=== PATIENT | male | born 1960 | race Caucasian/White ===

== ENCOUNTER 2016-03-22 17:45 | Emergency (ER) | payer OTHER ==
[~2016-03-22] VITALS: Ht 172.7 cm; Wt 65.9 kg
[~2016-03-22 17:45] MED LIST: ALBUTEROL SULF8.5 GM IH; AMOXICILLIN500 M1 PO; Aspirin E.C. PO; BISAC-EVAC10 MG PR; BISACODYL5 MG PO; CAMPRAL333 MG PO; CHLORDIAZEPOXID25 MG PO; DOCUSATE SODIU100 MG PO; ENDOCET 5-3251 EACH PO; Folvite PO; KETOROLAC TROME10 MG PO; MAG-AL PLUS SUS30 ML PO; METOPROLOL SUCC25 MG PO; MILK OF MAGNESI10 ML PO; MORPHINE SULFAT15 M1; NEURONTIN300 MG PO; NOHOMEMEDS; PANTOPRAZOLE SO40 MG PO; PEPCID20 MG PO; PROTONIX40 MG PO; QUETIAPINE FUM400 MG PO; SENNA8.6 MG PO; SEROQUEL XR150 MG PO; SEROQUEL400 MG PO; THERAGRAN1 TABLET PO; THIAMINE HCL100 MG PO; THIAMINE,VITAM100 MG PO; TYLENOL EXTRA500 MG PO; TYLENOL REGULA325 MG PO; VICODIN,LORT1 TABLET PO; VITAMIN B-1100 MG PO; ZYVOX600 MG PO; oxyCODONE PO
[2016-03-22 18:22] LABS: HEMATOCRIT 40.8 % (38.0-50.0); MCH 31.4 PG (29.0-34.0); MCHC 33.8 G/DL (30.0-36.0); MCV 92.7 FL (86-99); MEAN PLAT.VOLUME 10.7 uM^3 (9.0-12.4); PLATELET COUNT 182 K/uL (156-360); RBC DIS.WIDTH-CV 14.5 % (11.8-14.6); RBC DIS.WIDTH-SD 47.6 % (39-53); WHITE BLOOD COUNT 5.3 K/uL (4.1-10.2)
[2016-03-22 18:34] LABS: CHLORIDE 111 mEq/L (99-109); POTASSIUM 3.8 mEq/L (3.7-5.4); SODIUM 147 mEq/L (136-147)
[2016-03-22 18:36] LABS: GLUCOSE 90 mg/dL (70-99)
[2016-03-22 18:38] LABS: ANION GAP 11 MEQ/L (2-14)
[2016-03-22 18:39] LABS: SERUM ETHYL ALCOHOL 262 mg/dL
[2016-03-22 18:40] LABS: GFR ESTIMATE (CALCULATED) > 59 mL/min/
[2016-03-22 18:41] LABS: UREA NITROGEN (BUN) 5 mg/dL (9-23)
[2016-03-23 10:12] VITALS: BP 101/74
== END 2016-03-23 10:14 | disposition home or self-care (01) ==
LOC: EME 17:45
PROVIDERS: Emergency Medicine
DX: F33.8 Other recurrent depressive disorders (principal); F10.129 Alcohol abuse with intoxication, unspecified; Y90.8 Blood alcohol level of 240 mg/100 ml or more; R45.851 Suicidal ideations; R45.850 Homicidal ideations; J45.909 Unspecified asthma, uncomplicated; I10 Essential (primary) hypertension; Z95.1 Presence of aortocoronary bypass graft; F17.200 Nicotine dependence, unspecified, uncomplicated
CPT/HCPCS: 80048; 85027; 90837; 99281; 99283; G0480; J1630; J2060

== ENCOUNTER 2016-05-29 08:19 | Emergency (ER) | payer OTHER ==
[~2016-05-29] VITALS: Ht 177.8 cm; Wt 68.9 kg
[2016-05-29 08:57] LABS: BASOPHIL COUNT 0.1 K/uL (0-0.1); EOSINOPHIL (%) 1.9 % (0-5); EOSINOPHIL COUNT 0.1 K/uL (0-0.3); HEMATOCRIT 41.3 % (38.0-50.0); IMMATURE GRANULOCYTE (%) 0.2 % (0.0-0.7); INSTRUMENT ABS NEUTROPHIL CT 2.6 K/uL; LYMPHOCYTE COUNT 2.8 K/uL (1.0-2.8); MCH 30.9 PG (29.0-34.0); MCHC 33.2 G/DL (30.0-36.0); MEAN PLAT.VOLUME 11.6 uM^3 (9.0-12.4); MONOCYTE (%) 5.4 % (3-12); MONOCYTE COUNT 0.3 K/uL (0-0.8); NEUTROPHIL (%) 43.8 % (45-76); NEUTROPHIL COUNT 2.6 K/uL (1.8-6.4); PLATELET COUNT 175 K/uL (156-360); RBC DIS.WIDTH-CV 14.2 % (11.8-14.6); RBC DIS.WIDTH-SD 48.6 % (39-53); RED BLOOD COUNT 4.44 M/uL (4.00-5.50); WHITE BLOOD COUNT 5.9 K/uL (4.1-10.2)
[2016-05-29 09:08] LABS: CHLORIDE 112 mEq/L (99-109); POTASSIUM 3.9 mEq/L (3.7-5.4); SODIUM 147 mEq/L (136-147)
[2016-05-29 09:10] LABS: GLUCOSE 109 mg/dL (70-99)
[2016-05-29 09:11] LABS: ANION GAP 15 MEQ/L (2-14)
[2016-05-29 09:13] LABS: SERUM ETHYL ALCOHOL 384 mg/dL
[2016-05-29 09:14] LABS: GFR ESTIMATE (CALCULATED) > 59 mL/min/
[2016-05-29 09:15] LABS: UREA NITROGEN (BUN) 9 mg/dL (9-23)
[2016-05-29 16:16] LABS: ADD MIUA? YES; BILIRUBIN NEGATIVE; BLOOD NEGATIVE; COLOR YELLOW ((YELLOW)); GLUCOSE (STRIP) NEGATIVE; KETONES NEGATIVE; LEUKOCYTES NEGATIVE; NITRITE NEGATIVE; PROTEIN (STRIP) NEGATIVE; SPECIFIC GRAVITY 1.015 (1.000-1.030); UROBILINOGEN 0.2 MG/DL (0.2-1.0)
[2016-05-29 16:21] LABS: BACTERIA RARE /HPF; EPITHELIAL CELLS RARE /HPF; GRANULAR CASTS 0-5 /LPF; HYALINE CASTS 30-40 /LPF; MUCUS TRACE /LPF; RED BLOOD CELLS 0-5 /HPF (0-5); WHITE BLOOD CELLS 0-5 /HPF (0-5)
[2016-05-29 16:31] LABS: THC CANNABINOIDS PRESUMPTIVE POSITIVE (50 ng/mL)
[2016-05-29 16:32] LABS: ADD MEDTOX COMMENT Y; AMPHETAMINE NEGATIVE (500 ng/mL); BARBITURATES NEGATIVE (200 ng/mL); BENZODIAZEPINES NEGATIVE (150 ng/mL); COCAINE NEGATIVE (150 ng/mL); INTERNAL CONTROLS VALID? YES; METHADONE NEGATIVE (200 ng/mL); METHAMPHETAMINE NEGATIVE (500 ng/mL); OPIATES (MORPHINE) NEGATIVE (100 ng/mL); OXYCODONE NEGATIVE (100 ng/mL); PHENCYCLIDINE NEGATIVE (25 ng/mL); PROPOXYPHENE NEGATIVE (300 ng/mL); TRICYCLIC ANTIDEPRESSANTS NEGATIVE (300 ng/mL)
[2016-05-29 21:07] VITALS: BP 124/81
== END 2016-05-29 21:09 | disposition home or self-care (01) ==
LOC: EME → EDBD 08:19 → EME 08:19
PROVIDERS: Emergency Medicine
PROC: 2W3HX1Z Immobilization of Left Thumb using Splint (ICD-10-PCS; principal; 2016-05-29)
DX: F10.129 Alcohol abuse with intoxication, unspecified (principal); S62.522A Displaced fracture of distal phalanx of left thumb, initial encounter for closed fracture; W22.8XXA Striking against or struck by other objects, initial encounter; F41.9 Anxiety disorder, unspecified; Z95.1 Presence of aortocoronary bypass graft; F17.200 Nicotine dependence, unspecified, uncomplicated
CPT/HCPCS: 73140; 80048; 81003; 84999; 85025; 90832; 99281; 99283; G0480

== ENCOUNTER 2016-06-13 19:17 | Observation (INO) | payer OTHER ==
[~2016-06-13] VITALS: Ht 172.7 cm; Wt 74.7 kg
[2016-06-13 20:05] LABS: BASOPHIL COUNT 0.1 K/uL (0-0.1); EOSINOPHIL (%) 0.6 % (0-5); HEMATOCRIT 38.4 % (38.0-50.0); IMMATURE GRANULOCYTE (%) 0.3 % (0.0-0.7); INSTRUMENT ABS NEUTROPHIL CT 3.4 K/uL; LYMPHOCYTE COUNT 2.3 K/uL (1.0-2.8); MCH 30.8 PG (29.0-34.0); MCHC 33.1 G/DL (30.0-36.0); MEAN PLAT.VOLUME 11.4 uM^3 (9.0-12.4); MONOCYTE (%) 6.9 % (3-12); MONOCYTE COUNT 0.4 K/uL (0-0.8); NEUTROPHIL COUNT 3.4 K/uL (1.8-6.4); PLATELET COUNT 178 K/uL (156-360); RBC DIS.WIDTH-CV 13.9 % (11.8-14.6); RBC DIS.WIDTH-SD 46.9 % (39-53); RED BLOOD COUNT 4.13 M/uL (4.00-5.50); WHITE BLOOD COUNT 6.3 K/uL (4.1-10.2)
[2016-06-13 20:27] LABS: TROP-I INTERPRETATION NEGATIVE; TROPONIN-I 0.02 ng/mL (0.0-0.30)
[2016-06-13 20:33] LABS: CHLORIDE 107 mEq/L (99-109); POTASSIUM 4.3 mEq/L (3.7-5.4); SODIUM 142 mEq/L (136-147)
[2016-06-13 20:35] LABS: GLUCOSE 133 mg/dL (70-99)
[2016-06-13 20:36] LABS: ANION GAP 15 MEQ/L (2-14)
[2016-06-13 20:38] LABS: SERUM ETHYL ALCOHOL 338 mg/dL
[2016-06-13 20:39] LABS: GFR ESTIMATE (CALCULATED) > 59 mL/min/
[2016-06-13 20:40] LABS: UREA NITROGEN (BUN) 10 mg/dL (9-23)
[2016-06-13 23:03] LABS: LIPASE 35 U/L (1.0-51.0)
[2016-06-13 23:55] LABS: MAGNESIUM 1.9 mg/dL (1.3-2.7)
[2016-06-13 23:59] LABS: TOTAL BILIRUBIN 0.4 mg/dL (0.0-1.0)
[2016-06-14] LABS: ALKALINE PHOSPHATASE 61 IU/L (3-129)
[2016-06-14 00:03] LABS: DIRECT BILIRUBIN 0.2 mg/dL (0.0-0.3)
[2016-06-14 02:13] VITALS: BP 106/57
[2016-06-14 02:44] LABS: HEMATOCRIT 35.6 % (38.0-50.0); MCH 30.5 PG (29.0-34.0); MCHC 32.9 G/DL (30.0-36.0); MEAN PLAT.VOLUME 11.4 uM^3 (9.0-12.4); PLATELET COUNT 153 K/uL (156-360); RBC DIS.WIDTH-CV 13.9 % (11.8-14.6); RBC DIS.WIDTH-SD 47.1 % (39-53); RED BLOOD COUNT 3.83 M/uL (4.00-5.50); WHITE BLOOD COUNT 5.1 K/uL (4.1-10.2)
[2016-06-14 02:54] LABS: CHLORIDE 107 mEq/L (99-109); SODIUM 143 mEq/L (136-147)
[2016-06-14 02:57] LABS: ANION GAP 10 MEQ/L (2-14)
[2016-06-14 02:59] LABS: GFR ESTIMATE (CALCULATED) > 59 mL/min/
[2016-06-14 03:00] LABS: UREA NITROGEN (BUN) 10 mg/dL (9-23)
[2016-06-14 03:05] LABS: TROP-I INTERPRETATION NEGATIVE; TROPONIN-I 0.02 ng/mL (0.0-0.30)
[2016-06-14 03:06] LABS: GLUCOSE 84 mg/dL (70-99)
[2016-06-14 05:50] VITALS: BP 103/59
[2016-06-14 08:20] VITALS: BP 109/82
[2016-06-14 08:59] LABS: TROP-I INTERPRETATION NEGATIVE; TROPONIN-I 0.02 ng/mL (0.0-0.30)
[2016-06-14 12:17] VITALS: BP 128/89
== END 2016-06-14 14:45 | disposition home or self-care (01) ==
LOC: EME 19:17 → EDOF 23:13 → 4EAST 23:13
PROVIDERS: Emergency Medicine; Hospitalist
DX: R07.89 Other chest pain (principal); F10.229 Alcohol dependence with intoxication, unspecified; Y90.8 Blood alcohol level of 240 mg/100 ml or more; F12.90 Cannabis use, unspecified, uncomplicated; I47.1 Supraventricular tachycardia; B18.2 Chronic viral hepatitis C; D64.9 Anemia, unspecified; F17.200 Nicotine dependence, unspecified, uncomplicated; K21.9 Gastro-esophageal reflux disease without esophagitis; F41.9 Anxiety disorder, unspecified; I44.7 Left bundle-branch block, unspecified
CPT/HCPCS: 71010; 80048; 80076; 83690; 83735; 84484; 85025; 85027; 93005; 93306; 99202; 99281; 99285; G0378; G0480; J1200; J2270; J2765; J3411; J7030

== ENCOUNTER 2016-06-15 22:52 | Emergency (ER) | payer OTHER ==
[~2016-06-15] VITALS: Ht 177.8 cm; Wt 69.1 kg
[2016-06-15 23:23] LABS: CHLORIDE 107 mEq/L (99-109); SODIUM 145 mEq/L (136-147)
[2016-06-15 23:25] LABS: GLUCOSE 87 mg/dL (70-99)
[2016-06-15 23:26] LABS: ANION GAP 13 MEQ/L (2-14)
[2016-06-15 23:29] LABS: GFR ESTIMATE (CALCULATED) > 59 mL/min/
[2016-06-15 23:30] LABS: UREA NITROGEN (BUN) 4 mg/dL (9-23)
[2016-06-15 23:33] LABS: TROP-I INTERPRETATION NEGATIVE; TROPONIN-I 0.02 ng/mL (0.0-0.30)
[2016-06-15 23:49] LABS: HEMATOCRIT 42.3 % (38.0-50.0); MCH 30.8 PG (29.0-34.0); MCHC 33.1 G/DL (30.0-36.0); MEAN PLAT.VOLUME 11.7 uM^3 (9.0-12.4); PLAT.SUFFICIENCY ADEQUATE; PLATELET COUNT 159 K/uL (156-360); RBC DIS.WIDTH-CV 13.5 % (11.8-14.6); RBC DIS.WIDTH-SD 45.8 % (39-53); RED BLOOD COUNT 4.55 M/uL (4.00-5.50); WHITE BLOOD COUNT 6.5 K/uL (4.1-10.2)
[2016-06-16 00:50] VITALS: BP 138/88
== END 2016-06-16 00:51 | disposition home or self-care (01) ==
LOC: EME 22:52
PROVIDERS: Emergency Medicine
DX: R07.89 Other chest pain (principal); I10 Essential (primary) hypertension; J45.909 Unspecified asthma, uncomplicated; G89.29 Other chronic pain; F31.9 Bipolar disorder, unspecified; I25.2 Old myocardial infarction; Z95.1 Presence of aortocoronary bypass graft; K21.9 Gastro-esophageal reflux disease without esophagitis; F17.200 Nicotine dependence, unspecified, uncomplicated; Z91.14 Patient's other noncompliance with medication regimen
CPT/HCPCS: 71010; 80048; 84484; 85027; 93005; 99281; 99284

== ENCOUNTER 2016-06-20 16:26 | Emergency (ER) | payer OTHER ==
[~2016-06-20] VITALS: Ht 162.6 cm; Wt 74.0 kg
[2016-06-20 19:59] LABS: HEMATOCRIT 38.2 % (38.0-50.0); MCH 31.3 PG (29.0-34.0); MCHC 32.7 G/DL (30.0-36.0); MCV 95.5 FL (86-99); MEAN PLAT.VOLUME 11.3 uM^3 (9.0-12.4); PLATELET COUNT 168 K/uL (156-360); RBC DIS.WIDTH-CV 13.1 % (11.8-14.6); RBC DIS.WIDTH-SD 46.5 % (39-53); WHITE BLOOD COUNT 8.2 K/uL (4.1-10.2)
[2016-06-20 20:16] LABS: CHLORIDE 112 mEq/L (99-109); POTASSIUM 3.5 mEq/L (3.7-5.4); SODIUM 145 mEq/L (136-147)
[2016-06-20 20:18] LABS: GLUCOSE 104 mg/dL (70-99)
[2016-06-20 20:19] LABS: ANION GAP 12 MEQ/L (2-14)
[2016-06-20 20:21] LABS: SERUM ETHYL ALCOHOL 285 mg/dL
[2016-06-20 20:22] LABS: GFR ESTIMATE (CALCULATED) > 59 mL/min/
[2016-06-20 20:23] LABS: UREA NITROGEN (BUN) 5 mg/dL (9-23)
[2016-06-21 04:55] VITALS: BP 107/72
== END 2016-06-21 04:56 | disposition home or self-care (01) ==
LOC: EME 16:26
PROVIDERS: Emergency Medicine
DX: F10.129 Alcohol abuse with intoxication, unspecified (principal); R45.1 Restlessness and agitation; F12.19 Cannabis abuse with unspecified cannabis-induced disorder; I10 Essential (primary) hypertension; K21.9 Gastro-esophageal reflux disease without esophagitis; I47.1 Supraventricular tachycardia; Z95.1 Presence of aortocoronary bypass graft; F17.200 Nicotine dependence, unspecified, uncomplicated; Z78.1 Physical restraint status
CPT/HCPCS: 80048; 85027; 99281; 99285; G0480; J1630; J2060

== ENCOUNTER 2016-07-21 18:04 | Emergency (ER) | payer OTHER ==
[~2016-07-21] VITALS: Ht 177.8 cm; Wt 68.0 kg
[2016-07-21 18:07] VITALS: BP 159/135
[2016-07-21 18:49] LABS: BASOPHIL COUNT 0.1 K/uL (0-0.1); EOSINOPHIL (%) 0.3 % (0-5); HEMATOCRIT 40.6 % (38.0-50.0); IMMATURE GRANULOCYTE (%) 0.3 % (0.0-0.7); INSTRUMENT ABS NEUTROPHIL CT 3.9 K/uL; MCH 30.5 PG (29.0-34.0); MCV 89.8 FL (86-99); MEAN PLAT.VOLUME 10.7 uM^3 (9.0-12.4); MONOCYTE (%) 7.3 % (3-12); MONOCYTE COUNT 0.5 K/uL (0-0.8); NEUTROPHIL (%) 51.7 % (45-76); NEUTROPHIL COUNT 3.9 K/uL (1.8-6.4); PLATELET COUNT 182 K/uL (156-360); RBC DIS.WIDTH-CV 13.2 % (11.8-14.6); RBC DIS.WIDTH-SD 43.5 % (39-53); RED BLOOD COUNT 4.52 M/uL (4.00-5.50); WHITE BLOOD COUNT 7.4 K/uL (4.1-10.2)
[2016-07-21 19:00] LABS: CHLORIDE 99 mEq/L (99-109); SODIUM 137 mEq/L (136-147)
[2016-07-21 19:02] LABS: GLUCOSE 102 mg/dL (70-99)
[2016-07-21 19:04] LABS: ANION GAP 15 MEQ/L (2-14); TOTAL BILIRUBIN 0.6 mg/dL (0.0-1.0)
[2016-07-21 19:05] LABS: SERUM ETHYL ALCOHOL 366 mg/dL
[2016-07-21 19:06] LABS: GFR ESTIMATE (CALCULATED) > 59 mL/min/
[2016-07-21 19:07] LABS: ALKALINE PHOSPHATASE 71 IU/L (3-129)
[2016-07-21 19:08] LABS: UREA NITROGEN (BUN) 4 mg/dL (9-23)
[2016-07-21 19:10] LABS: SALICYLATE < 5.0 MG/DL (15-30)
[2016-07-21 19:12] LABS: TROP-I INTERPRETATION NEGATIVE; TROPONIN-I < 0.01 ng/mL (0.0-0.30)
[2016-07-21 19:32] LABS: ADD MIUA? YES; BILIRUBIN NEGATIVE; BLOOD SMALL; COLOR STRAW ((YELLOW)); GLUCOSE (STRIP) NEGATIVE; KETONES NEGATIVE; LEUKOCYTES NEGATIVE; NITRITE POSITIVE; PROTEIN (STRIP) NEGATIVE; SPECIFIC GRAVITY 1.003 (1.000-1.030); UROBILINOGEN 0.2 MG/DL (0.2-1.0)
[2016-07-21 19:39] LABS: AMPHETAMINE NEGATIVE (500 ng/mL); BARBITURATES NEGATIVE (200 ng/mL); BENZODIAZEPINES NEGATIVE (150 ng/mL); COCAINE NEGATIVE (150 ng/mL); INTERNAL CONTROLS VALID? YES; METHADONE NEGATIVE (200 ng/mL); METHAMPHETAMINE NEGATIVE (500 ng/mL); OPIATES (MORPHINE) NEGATIVE (100 ng/mL); OXYCODONE NEGATIVE (100 ng/mL); PHENCYCLIDINE NEGATIVE (25 ng/mL); PROPOXYPHENE NEGATIVE (300 ng/mL); THC CANNABINOIDS PRESUMPTIVE POSITIVE (50 ng/mL); TRICYCLIC ANTIDEPRESSANTS NEGATIVE (300 ng/mL)
[2016-07-21 19:40] LABS: ADD MEDTOX COMMENT Y
[2016-07-21 19:41] LABS: BACTERIA RARE /HPF; EPITHELIAL CELLS NONE SEEN /HPF; MUCUS NONE SEEN /LPF; RED BLOOD CELLS 0-5 /HPF (0-5); UCUL ADDED? NO; WHITE BLOOD CELLS 0-5 /HPF (0-5)
[2016-07-22] MEDS ORDERED: ULTRAM50 MG PO (09:52)
== END 2016-07-21 19:32 | disposition left against medical advice (07) ==
LOC: EME 18:04
PROVIDERS: Emergency Medicine
DX: F10.129 Alcohol abuse with intoxication, unspecified (principal); Y90.8 Blood alcohol level of 240 mg/100 ml or more; R74.8 Abnormal levels of other serum enzymes; I10 Essential (primary) hypertension; Z95.1 Presence of aortocoronary bypass graft; Z91.14 Patient's other noncompliance with medication regimen; F17.200 Nicotine dependence, unspecified, uncomplicated
CPT/HCPCS: 80053; 81003; 84484; 84999; 85025; 99281; 99284; G0480

== ENCOUNTER 2016-07-22 06:42 | Emergency (ER) | payer OTHER ==
[~2016-07-22] VITALS: Ht 175.3 cm; Wt 68.1 kg
[2016-07-22] MEDS ORDERED: ULTRAM50 MG PO (09:52)
[2016-07-22 10:10] VITALS: BP 126/78
== END 2016-07-22 10:11 | disposition home or self-care (01) ==
LOC: EME 06:42
PROC: 2W3DX1Z Immobilization of Left Lower Arm using Splint (ICD-10-PCS; principal; 2016-07-22)
DX: S62.341A Nondisplaced fracture of base of second metacarpal bone, left hand, initial encounter for closed fracture (principal); S52.602A Unspecified fracture of lower end of left ulna, initial encounter for closed fracture; W19.XXXA Unspecified fall, initial encounter; Y92.009 Unspecified place in unspecified non-institutional (private) residence as the place of occurrence of the external cause
CPT/HCPCS: 73130; 99281; 99284

== ENCOUNTER 2016-08-02 18:56 | Emergency (ER) | payer OTHER ==
[~2016-08-02] VITALS: Ht 175.3 cm; Wt 65.9 kg
[~2016-08-02 18:56] MED LIST changes: +ULTRAM50 MG PO
[2016-08-02 21:03] LABS: ADD MIUA? YES; BILIRUBIN NEGATIVE; BLOOD NEGATIVE; COLOR STRAW ((YELLOW)); GLUCOSE (STRIP) NEGATIVE; KETONES NEGATIVE; LEUKOCYTES NEGATIVE; NITRITE POSITIVE; PROTEIN (STRIP) NEGATIVE; SPECIFIC GRAVITY 1.003 (1.000-1.030); UROBILINOGEN 0.2 MG/DL (0.2-1.0)
[2016-08-02 21:08] LABS: BACTERIA NONE SEEN /HPF; EPITHELIAL CELLS NONE SEEN /HPF; MUCUS NONE SEEN /LPF; RED BLOOD CELLS 0-5 /HPF (0-5); UCUL ADDED? NO; WHITE BLOOD CELLS 0-5 /HPF (0-5)
[2016-08-02] MEDS ORDERED: CIPRO500 MG PO (21:09)
[2016-08-02 21:18] VITALS: BP 147/101
== END 2016-08-02 21:19 | disposition home or self-care (01) ==
LOC: EME 18:56 → EXP 18:56
PROVIDERS: Physician Assistant
DX: N39.0 Urinary tract infection, site not specified (principal); S62.92XD Unspecified fracture of left hand, subsequent encounter for fracture with routine healing; W18.30XD Fall on same level, unspecified, subsequent encounter
CPT/HCPCS: 73110; 81003; 99281; 99283

== ENCOUNTER 2016-08-15 14:26 | Emergency (ER) | payer OTHER ==
[~2016-08-15] VITALS: Ht 177.8 cm; Wt 70.4 kg
[~2016-08-15 14:26] MED LIST changes: +CIPRO500 MG PO
[2016-08-15 15:06] VITALS: BP 96/83
== END 2016-08-15 17:04 | disposition left against medical advice (07) ==
LOC: EME 14:26
DX: Z46.89 Encounter for fitting and adjustment of other specified devices (principal); F17.200 Nicotine dependence, unspecified, uncomplicated
CPT/HCPCS: 99281; 99283

== ENCOUNTER 2016-09-15 17:39 | Emergency (ER) | payer OTHER ==
[~2016-09-15] VITALS: Ht 175.3 cm; Wt 66.3 kg
[2016-09-15 19:08] VITALS: BP 127/96
== END 2016-09-15 19:25 | disposition home or self-care (01) ==
LOC: EME 17:39
DX: S70.02XA Contusion of left hip, initial encounter (principal); W01.0XXA Fall on same level from slipping, tripping and stumbling without subsequent striking against object, initial encounter; Y92.480 Sidewalk as the place of occurrence of the external cause; Y93.01 Activity, walking, marching and hiking; F10.10 Alcohol abuse, uncomplicated; I10 Essential (primary) hypertension; K21.9 Gastro-esophageal reflux disease without esophagitis; J45.909 Unspecified asthma, uncomplicated; F32.9 Major depressive disorder, single episode, unspecified; F41.9 Anxiety disorder, unspecified; Z86.73 Personal history of transient ischemic attack (TIA), and cerebral infarction without residual deficits; F17.200 Nicotine dependence, unspecified, uncomplicated; Z95.1 Presence of aortocoronary bypass graft
CPT/HCPCS: 73502; 99281; 99283

== ENCOUNTER 2017-02-08 21:08 | Emergency (ER) | payer OTHER ==
[~2017-02-08] VITALS: Ht 167.6 cm; Wt 71.0 kg
[2017-02-09 01:51] VITALS: BP 136/92
== END 2017-02-09 02:05 | disposition home or self-care (01) ==
LOC: EME 21:08
DX: F10.129 Alcohol abuse with intoxication, unspecified (principal); S00.81XA Abrasion of other part of head, initial encounter; W17.89XA Other fall from one level to another, initial encounter; R11.0 Nausea; Z95.1 Presence of aortocoronary bypass graft; Z86.73 Personal history of transient ischemic attack (TIA), and cerebral infarction without residual deficits; F17.200 Nicotine dependence, unspecified, uncomplicated
CPT/HCPCS: 70450; 99281; 99284

== ENCOUNTER 2017-03-30 15:55 | Emergency (ER) | payer OTHER ==
[~2017-03-30] VITALS: Ht 175.3 cm; Wt 65.9 kg
[2017-03-30 17:05] LABS: BASOPHIL (%) 0.5 % (0-1); EOSINOPHIL (%) 0.7 % (0-5); EOSINOPHIL COUNT 0.1 K/uL (0-0.3); HEMATOCRIT 38.7 % (38.0-50.0); HEMOGLOBIN 13.3 G/DL (12.5-16.6); IMMATURE GRANULOCYTE (%) 0.2 % (0.0-0.7); LYMPHOCYTE (%) 41.9 % (15-42); LYMPHOCYTE COUNT 3.5 K/uL (1.0-2.8); MCH 31.4 PG (29.0-34.0); MCHC 34.4 G/DL (30.0-36.0); MCV 91.5 FL (86-99); MONOCYTE (%) 5.2 % (3-12); MONOCYTE COUNT 0.4 K/uL (0-0.8); NEUTROPHIL (%) 51.5 % (45-76); NEUTROPHIL COUNT 4.3 K/uL (1.8-6.4); PLATELET COUNT 158 K/uL (156-360); RBC DIS.WIDTH-CV 14.9 % (11.8-14.6); RBC DIS.WIDTH-SD 49.6 % (39-53); RED BLOOD COUNT 4.23 M/uL (4.00-5.50); WHITE BLOOD COUNT 8.3 K/uL (4.1-10.2)
[2017-03-30 17:13] LABS: CHLORIDE 102 mEq/L (99-109); POTASSIUM 4.4 mEq/L (3.7-5.4); SODIUM 140 mEq/L (136-147)
[2017-03-30 17:14] LABS: ALBUMIN 4.4 g/dL (3.2-4.8); MAGNESIUM 2.2 mg/dL (1.3-2.7)
[2017-03-30 17:16] LABS: GLUCOSE 84 mg/dL (70-99); TOTAL PROTEIN 7.7 g/dL (6.4-8.3)
[2017-03-30 17:18] LABS: TOTAL BILIRUBIN 0.6 mg/dL (0.0-1.0)
[2017-03-30 17:19] LABS: ALKALINE PHOSPHATASE 63 IU/L (3-129); SERUM ETHYL ALCOHOL 278 mg/dL
[2017-03-30 17:20] LABS: CREATININE 0.7 mg/dL (0.6-1.3); GFR ESTIMATE (CALCULATED) > 59 mL/min/ (58.99-99999)
[2017-03-30 17:21] LABS: AST (GOT) 58 IU/L (2-34); UREA NITROGEN (BUN) 11 mg/dL (9-23)
[2017-03-30 17:23] LABS: ALT (GPT) 46 IU/L (3-49); LIPASE 26 U/L (1.0-51.0)
[2017-03-30 21:06] VITALS: BP 119/69
== END 2017-03-30 21:07 | disposition home or self-care (01) ==
LOC: EME 15:55
PROVIDERS: Emergency Medicine
DX: F10.129 Alcohol abuse with intoxication, unspecified (principal); R51 Headache; Z91.14 Patient's other noncompliance with medication regimen; Z86.73 Personal history of transient ischemic attack (TIA), and cerebral infarction without residual deficits; Z95.1 Presence of aortocoronary bypass graft; F17.200 Nicotine dependence, unspecified, uncomplicated; Y90.8 Blood alcohol level of 240 mg/100 ml or more
CPT/HCPCS: 70450; 80053; 83690; 83735; 85025; 99281; 99284; G0480

== ENCOUNTER 2017-04-16 12:58 | Emergency (ER) | payer OTHER ==
[~2017-04-16] VITALS: Ht 175.3 cm; Wt 79.5 kg
[2017-04-16 13:36] LABS: BASOPHIL (%) 0.6 % (0-1); EOSINOPHIL (%) 0.3 % (0-5); HEMATOCRIT 36.1 % (38.0-50.0); IMMATURE GRANULOCYTE (%) 0.3 % (0.0-0.7); LYMPHOCYTE (%) 15.4 % (15-42); LYMPHOCYTE COUNT 0.5 K/uL (1.0-2.8); MCH 31.1 PG (29.0-34.0); MCHC 33.2 G/DL (30.0-36.0); MCV 93.5 FL (86-99); MONOCYTE (%) 6.8 % (3-12); MONOCYTE COUNT 0.2 K/uL (0-0.8); NEUTROPHIL (%) 76.6 % (45-76); NEUTROPHIL COUNT 2.5 K/uL (1.8-6.4); PLATELET COUNT 143 K/uL (156-360); RBC DIS.WIDTH-CV 15.6 % (11.8-14.6); RBC DIS.WIDTH-SD 53.5 % (39-53); RED BLOOD COUNT 3.86 M/uL (4.00-5.50); WHITE BLOOD COUNT 3.2 K/uL (4.1-10.2)
[2017-04-16 13:44] LABS: CHLORIDE 106 mEq/L (99-109); POTASSIUM 4.3 mEq/L (3.7-5.4); SODIUM 140 mEq/L (136-147)
[2017-04-16 13:45] LABS: MAGNESIUM 1.9 mg/dL (1.3-2.7)
[2017-04-16 13:46] LABS: GLUCOSE 142 mg/dL (70-99)
[2017-04-16 13:50] LABS: CREATININE 0.7 mg/dL (0.6-1.3); GFR ESTIMATE (CALCULATED) > 59 mL/min/ (58.99-99999)
[2017-04-16 13:51] LABS: UREA NITROGEN (BUN) 8 mg/dL (9-23)
[2017-04-16 13:57] LABS: TROP-I INTERPRETATION NEGATIVE; TROPONIN-I 0.03 ng/mL (0.0-0.30)
[2017-04-16 16:00] VITALS: BP 132/77
== END 2017-04-16 16:01 | disposition home or self-care (01) ==
LOC: EME 12:58
PROVIDERS: Emergency Medicine
DX: I47.1 Supraventricular tachycardia (principal); R42 Dizziness and giddiness; R11.2 Nausea with vomiting, unspecified; Z95.1 Presence of aortocoronary bypass graft; Z86.73 Personal history of transient ischemic attack (TIA), and cerebral infarction without residual deficits; F17.200 Nicotine dependence, unspecified, uncomplicated
CPT/HCPCS: 80048; 83735; 84484; 85025; 93005; 99281; 99285; J7030

== ENCOUNTER 2017-04-27 21:56 | Emergency (ER) | payer OTHER ==
[~2017-04-27] VITALS: Ht 175.3 cm; Wt 69.3 kg
[2017-04-27 23:07] LABS: HEMATOCRIT 41.1 % (38.0-50.0); HEMOGLOBIN 13.9 G/DL (12.5-16.6); MCH 31.6 PG (29.0-34.0); MCHC 33.8 G/DL (30.0-36.0); MCV 93.4 FL (86-99); PLATELET COUNT 161 K/uL (156-360); RBC DIS.WIDTH-SD 54.8 % (39-53); WHITE BLOOD COUNT 9.4 K/uL (4.1-10.2)
[2017-04-27 23:23] LABS: CHLORIDE 106 mEq/L (99-109); SODIUM 143 mEq/L (136-147)
[2017-04-27 23:25] LABS: GLUCOSE 91 mg/dL (70-99)
[2017-04-27 23:28] LABS: SERUM ETHYL ALCOHOL 386 mg/dL
[2017-04-27 23:29] LABS: CREATININE 0.6 mg/dL (0.6-1.3); GFR ESTIMATE (CALCULATED) > 59 mL/min/ (58.99-99999)
[2017-04-27 23:30] LABS: UREA NITROGEN (BUN) 6 mg/dL (9-23)
[2017-04-28 03:06] LABS: APPEARANCE CLEAR ((CLEAR)); BILIRUBIN NEGATIVE; BLOOD SMALL; COLOR YELLOW ((YELLOW)); GLUCOSE (STRIP) NEGATIVE; KETONES NEGATIVE; LEUKOCYTES SMALL; NITRITE POSITIVE; PROTEIN (STRIP) NEGATIVE; SPECIFIC GRAVITY 1.011 (1.000-1.030); UROBILINOGEN 0.2 MG/DL (0.2-1.0)
[2017-04-28 03:13] LABS: BACTERIA RARE /HPF; EPITHELIAL CELLS RARE /HPF; HYALINE CASTS 0-5 /LPF; MUCUS TRACE /LPF; RED BLOOD CELLS 0-5 /HPF (0-5); UCUL ADDED? YES; WHITE BLOOD CELLS 40-50 /HPF (0-5)
[2017-04-28 03:15] LABS: AMPHETAMINE NEGATIVE (500 ng/mL); BARBITURATES NEGATIVE (200 ng/mL); BENZODIAZEPINES NEGATIVE (150 ng/mL); BUPRENORPHINE NEGATIVE (10 ng/mL); COCAINE NEGATIVE (150 ng/mL); METHADONE NEGATIVE (200 ng/mL); METHAMPHETAMINE NEGATIVE (500 ng/mL); OPIATES (MORPHINE) NEGATIVE (100 ng/mL); OXYCODONE NEGATIVE (100 ng/mL); PHENCYCLIDINE NEGATIVE (25 ng/mL); PROPOXYPHENE NEGATIVE (300 ng/mL); THC CANNABINOIDS PRESUMPTIVE POSITIVE (50 ng/mL); TRICYCLIC ANTIDEPRESSANTS NEGATIVE (300 ng/mL)
[2017-04-28 06:14] LABS: TROP-I INTERPRETATION NEGATIVE; TROPONIN-I 0.01 ng/mL (0.0-0.30)
[2017-04-28] MEDS ORDERED: ZOFRAN ODT4 MG PO (11:41)
[2017-04-28 12:23] VITALS: BP 129/72
== END 2017-04-28 12:31 | disposition home or self-care (01) ==
LOC: EME 21:56
PROVIDERS: Emergency Medicine
DX: F10.129 Alcohol abuse with intoxication, unspecified (principal); R11.2 Nausea with vomiting, unspecified; J44.1 Chronic obstructive pulmonary disease with (acute) exacerbation; N30.01 Acute cystitis with hematuria; R45.851 Suicidal ideations; F33.8 Other recurrent depressive disorders; R07.9 Chest pain, unspecified; R05 Cough; Y90.8 Blood alcohol level of 240 mg/100 ml or more; Z95.1 Presence of aortocoronary bypass graft; Z86.73 Personal history of transient ischemic attack (TIA), and cerebral infarction without residual deficits; F17.200 Nicotine dependence, unspecified, uncomplicated
CPT/HCPCS: 71045; 80048; 81003; 84484; 84999; 85027; 87077; 87086; 87186; 90837; 93005; 94640; 99281; 99284; G0480

== ENCOUNTER 2017-06-15 20:19 | Emergency (ER) | payer OTHER ==
[~2017-06-15] VITALS: Ht 175.3 cm; Wt 70.3 kg
[~2017-06-15 20:19] MED LIST changes: +ZOFRAN ODT4 MG PO
[2017-06-15 20:52] LABS: BASOPHIL (%) 0.9 % (0-1); BASOPHIL COUNT 0.1 K/uL (0-0.1); EOSINOPHIL (%) 1.1 % (0-5); EOSINOPHIL COUNT 0.1 K/uL (0-0.3); HEMATOCRIT 39.3 % (38.0-50.0); HEMOGLOBIN 13.4 G/DL (12.5-16.6); IMMATURE GRANULOCYTE (%) 0.1 % (0.0-0.7); LYMPHOCYTE (%) 51.8 % (15-42); LYMPHOCYTE COUNT 4.2 K/uL (1.0-2.8); MCH 31.6 PG (29.0-34.0); MCHC 34.1 G/DL (30.0-36.0); MCV 92.7 FL (86-99); MONOCYTE COUNT 0.4 K/uL (0-0.8); NEUTROPHIL (%) 41.1 % (45-76); NEUTROPHIL COUNT 3.4 K/uL (1.8-6.4); PLATELET COUNT 188 K/uL (156-360); RBC DIS.WIDTH-CV 13.2 % (11.8-14.6); RBC DIS.WIDTH-SD 44.9 % (39-53); RED BLOOD COUNT 4.24 M/uL (4.00-5.50); WHITE BLOOD COUNT 8.2 K/uL (4.1-10.2)
[2017-06-15 21:06] LABS: ALBUMIN 4.5 g/dL (3.2-4.8); CHLORIDE 108 mEq/L (99-109); POTASSIUM 4.1 mEq/L (3.7-5.4); SODIUM 144 mEq/L (136-147)
[2017-06-15 21:07] LABS: MAGNESIUM 2.2 mg/dL (1.3-2.7)
[2017-06-15 21:08] LABS: GLUCOSE 87 mg/dL (70-99)
[2017-06-15 21:09] LABS: TOTAL PROTEIN 7.7 g/dL (6.4-8.3)
[2017-06-15 21:10] LABS: TOTAL BILIRUBIN 0.3 mg/dL (0.0-1.0)
[2017-06-15 21:11] LABS: SERUM ETHYL ALCOHOL 359 mg/dL
[2017-06-15 21:12] LABS: ALKALINE PHOSPHATASE 62 IU/L (3-129); CREATININE 0.6 mg/dL (0.6-1.3); GFR ESTIMATE (CALCULATED) > 59 mL/min/ (58.99-99999)
[2017-06-15 21:13] LABS: UREA NITROGEN (BUN) 11 mg/dL (9-23)
[2017-06-15 21:14] LABS: AST (GOT) 93 IU/L (2-34)
[2017-06-15 21:15] LABS: ALT (GPT) 65 IU/L (3-49); LIPASE 29 U/L (1.0-51.0)
[2017-06-15 21:18] LABS: TROP-I INTERPRETATION NEGATIVE; TROPONIN-I 0.02 ng/mL (0.0-0.30)
[2017-06-16 02:44] LABS: TROP-I INTERPRETATION NEGATIVE; TROPONIN-I 0.02 ng/mL (0.0-0.30)
[2017-06-16] MEDS ORDERED: LIBRIUM25 MG PO (04:21)
[2017-06-16 04:54] VITALS: BP 124/64
== END 2017-06-16 05:03 | disposition home or self-care (01) ==
LOC: EME 20:19
PROVIDERS: Emergency Medicine
DX: F10.129 Alcohol abuse with intoxication, unspecified (principal); R07.89 Other chest pain; R06.02 Shortness of breath; Z86.73 Personal history of transient ischemic attack (TIA), and cerebral infarction without residual deficits; Z95.1 Presence of aortocoronary bypass graft; Y90.8 Blood alcohol level of 240 mg/100 ml or more; F17.200 Nicotine dependence, unspecified, uncomplicated
CPT/HCPCS: 71045; 80053; 83690; 83735; 84484; 85025; 93005; 94640; 99281; 99285; G0480

== ENCOUNTER 2017-06-22 19:52 | Emergency (ER) | payer OTHER ==
[~2017-06-22] VITALS: Ht 175.3 cm; Wt 73.0 kg
[~2017-06-22 19:52] MED LIST changes: +LIBRIUM25 MG PO
[2017-06-22 22:09] VITALS: BP 126/65
== END 2017-06-22 22:10 | disposition home or self-care (01) ==
LOC: EME 19:52
DX: S70.01XA Contusion of right hip, initial encounter (principal); W18.30XA Fall on same level, unspecified, initial encounter; I10 Essential (primary) hypertension; K21.9 Gastro-esophageal reflux disease without esophagitis; J45.909 Unspecified asthma, uncomplicated; F41.9 Anxiety disorder, unspecified; F32.9 Major depressive disorder, single episode, unspecified; F17.200 Nicotine dependence, unspecified, uncomplicated; Z95.1 Presence of aortocoronary bypass graft; Z86.73 Personal history of transient ischemic attack (TIA), and cerebral infarction without residual deficits; Z85.9 Personal history of malignant neoplasm, unspecified; Z86.79 Personal history of other diseases of the circulatory system; Z91.040 Latex allergy status; Z88.6 Allergy status to analgesic agent; Z88.5 Allergy status to narcotic agent; Z91.041 Radiographic dye allergy status
CPT/HCPCS: 72100; 73502

== ENCOUNTER 2017-08-22 14:13 | Emergency (ER) | payer OTHER ==
[~2017-08-22] VITALS: Ht 177.8 cm; Wt 140.0 kg
[2017-08-22 15:31] LABS: HEMATOCRIT 39.6 % (38.0-50.0); HEMOGLOBIN 13.5 G/DL (12.5-16.6); MCH 31.5 PG (29.0-34.0); MCHC 34.1 G/DL (30.0-36.0); MCV 92.3 FL (86-99); PLATELET COUNT 156 K/uL (156-360); RBC DIS.WIDTH-CV 14.9 % (11.8-14.6); RBC DIS.WIDTH-SD 49.7 % (39-53); RED BLOOD COUNT 4.29 M/uL (4.00-5.50); WHITE BLOOD COUNT 6.9 K/uL (4.1-10.2)
[2017-08-22 15:45] LABS: ALBUMIN 4.4 g/dL (3.2-4.8); CHLORIDE 108 mEq/L (99-109); POTASSIUM 4.6 mEq/L (3.7-5.4); SODIUM 145 mEq/L (136-147)
[2017-08-22 15:48] LABS: GLUCOSE 90 mg/dL (70-99); TOTAL PROTEIN 7.7 g/dL (6.4-8.3)
[2017-08-22 15:50] LABS: TOTAL BILIRUBIN 0.4 mg/dL (0.0-1.0)
[2017-08-22 15:51] LABS: ALKALINE PHOSPHATASE 109 IU/L (3-129); SERUM ETHYL ALCOHOL 358 mg/dL
[2017-08-22 15:52] LABS: CREATININE 0.7 mg/dL (0.6-1.3); GFR ESTIMATE (CALCULATED) > 59 mL/min/ (58.99-99999)
[2017-08-22 15:53] LABS: AST (GOT) 63 IU/L (2-34); UREA NITROGEN (BUN) 5 mg/dL (9-23)
[2017-08-22 15:54] LABS: ALT (GPT) 42 IU/L (3-49)
[2017-08-22 16:41] LABS: APPEARANCE CLEAR ((CLEAR)); BILIRUBIN NEGATIVE; BLOOD NEGATIVE; COLOR STRAW ((YELLOW)); GLUCOSE (STRIP) NEGATIVE; KETONES NEGATIVE; LEUKOCYTES NEGATIVE; NITRITE NEGATIVE; PROTEIN (STRIP) NEGATIVE; SPECIFIC GRAVITY 1.004 (1.000-1.030); UROBILINOGEN 0.2 MG/DL (0.2-1.0)
[2017-08-22 16:55] LABS: AMPHETAMINE NEGATIVE (500 ng/mL); BARBITURATES NEGATIVE (200 ng/mL); BENZODIAZEPINES NEGATIVE (150 ng/mL); BUPRENORPHINE NEGATIVE (10 ng/mL); COCAINE NEGATIVE (150 ng/mL); METHADONE NEGATIVE (200 ng/mL); METHAMPHETAMINE NEGATIVE (500 ng/mL); OPIATES (MORPHINE) NEGATIVE (100 ng/mL); OXYCODONE NEGATIVE (100 ng/mL); PHENCYCLIDINE NEGATIVE (25 ng/mL); PROPOXYPHENE NEGATIVE (300 ng/mL); THC CANNABINOIDS PRESUMPTIVE POSITIVE (50 ng/mL); TRICYCLIC ANTIDEPRESSANTS NEGATIVE (300 ng/mL)
[2017-08-23 04:43] VITALS: BP 108/68
== END 2017-08-23 04:42 | disposition home or self-care (01) ==
LOC: EME 14:13
PROVIDERS: Emergency Medicine
DX: F10.129 Alcohol abuse with intoxication, unspecified (principal); Y90.8 Blood alcohol level of 240 mg/100 ml or more; F32.9 Major depressive disorder, single episode, unspecified; I10 Essential (primary) hypertension; K21.9 Gastro-esophageal reflux disease without esophagitis; J45.909 Unspecified asthma, uncomplicated; F41.9 Anxiety disorder, unspecified; F31.9 Bipolar disorder, unspecified; F17.200 Nicotine dependence, unspecified, uncomplicated; Z86.73 Personal history of transient ischemic attack (TIA), and cerebral infarction without residual deficits; Z95.1 Presence of aortocoronary bypass graft; Z86.79 Personal history of other diseases of the circulatory system; Z85.9 Personal history of malignant neoplasm, unspecified; Z88.6 Allergy status to analgesic agent; Z88.5 Allergy status to narcotic agent; Z91.041 Radiographic dye allergy status; Z91.040 Latex allergy status
CPT/HCPCS: 80053; 81003; 84999; 85027; 90839; 99281; 99283; G0480; J1630; J2060

== ENCOUNTER 2017-09-03 21:54 | Inpatient (IN) | payer OTHER ==
[~2017-09-03] VITALS: Ht 175.3 cm; Wt 70.9 kg
[2017-09-03 22:42] LABS: AMPHETAMINE NEGATIVE (500 ng/mL); BARBITURATES NEGATIVE (200 ng/mL); BENZODIAZEPINES PRESUMPTIVE POSITIVE (150 ng/mL); BUPRENORPHINE NEGATIVE (10 ng/mL); COCAINE NEGATIVE (150 ng/mL); METHADONE NEGATIVE (200 ng/mL); METHAMPHETAMINE NEGATIVE (500 ng/mL); OPIATES (MORPHINE) NEGATIVE (100 ng/mL); OXYCODONE NEGATIVE (100 ng/mL); PHENCYCLIDINE NEGATIVE (25 ng/mL); PROPOXYPHENE NEGATIVE (300 ng/mL); THC CANNABINOIDS PRESUMPTIVE POSITIVE (50 ng/mL); TRICYCLIC ANTIDEPRESSANTS NEGATIVE (300 ng/mL)
[2017-09-03 22:50] LABS: HEMATOCRIT 37.7 % (38.0-50.0); HEMOGLOBIN 12.6 G/DL (12.5-16.6); MCH 31.3 PG (29.0-34.0); MCHC 33.4 G/DL (30.0-36.0); MCV 93.8 FL (86-99); PLATELET COUNT 148 K/uL (156-360); RBC DIS.WIDTH-CV 15.5 % (11.8-14.6); RBC DIS.WIDTH-SD 53.3 % (39-53); RED BLOOD COUNT 4.02 M/uL (4.00-5.50); WHITE BLOOD COUNT 6.6 K/uL (4.1-10.2)
[2017-09-03 23:01] LABS: CHLORIDE 109 mEq/L (99-109); POTASSIUM 4.1 mEq/L (3.7-5.4); SODIUM 146 mEq/L (136-147)
[2017-09-03 23:03] LABS: GLUCOSE 82 mg/dL (70-99)
[2017-09-03 23:06] LABS: SERUM ETHYL ALCOHOL 245 mg/dL
[2017-09-03 23:07] LABS: CREATININE 0.7 mg/dL (0.6-1.3); GFR ESTIMATE (CALCULATED) > 59 mL/min/ (58.99-99999)
[2017-09-03 23:09] LABS: UREA NITROGEN (BUN) 6 mg/dL (9-23)
[2017-09-03 23:10] LABS: ACETAMINOPHEN (TYLENOL) < 10 mcg/mL (10-30); SALICYLATE < 5.0 MG/DL (15-30)
[2017-09-03 23:10] LABS: BENZODIAZEPINES, URINE SCREEN POSITIVE (200 ng/mL)
[2017-09-04 12:14] VITALS: BP 136/89
[2017-09-04 13:17] VITALS: BP 119/65
[2017-09-04 16:13] VITALS: BP 119/59
[2017-09-05 07:43] VITALS: BP 140/71
[2017-09-05 16:07] VITALS: BP 117/53
[2017-09-06 07:48] VITALS: BP 126/64
[2017-09-06 16:32] VITALS: BP 139/84
[2017-09-07 07:23] VITALS: BP 149/83
[2017-09-07] MEDS ORDERED: Thiamine,Vitamin B1 PO (08:26)
[2017-09-07] MEDS ORDERED: GABAPENTIN300 MG PO (08:26)
[2017-09-07] MEDS ORDERED: TRAZODONE HCL50 MG PO (08:26)
[2017-09-07] MEDS ORDERED: DULOXETINE HCL30 MG PO (08:26)
== END 2017-09-07 11:18 | disposition other institution (70) | DRG 885 ==
LOC: EME → EDBD 21:54 → EME 21:54 → 1WEST 09-04 11:12 → EDOF 09-04 11:12 → 1WEST 09-04 12:03 → ENRESERV 09-04 12:03 → 1WEST 09-07 11:18
PROVIDERS: Emergency Medicine
DX: F33.1 Major depressive disorder, recurrent, moderate (principal); F43.23 Adjustment disorder with mixed anxiety and depressed mood; R45.851 Suicidal ideations; F10.20 Alcohol dependence, uncomplicated; F17.200 Nicotine dependence, unspecified, uncomplicated
CPT/HCPCS: 80048; 84999; 85027; 90837; 99281; 99285; G0480